=== PATIENT | male | born 1945 | race American Indian/Alaskan Native ===

== ENCOUNTER 2019-03-23 09:51 | Outpatient (CLI) | payer MEDICARE ==
--- NOTE | 2019-03-23 10:52 | Ultrasound Report ---
ULTRASOUND RENAL INDICATION: N18.4)Chronic kidney disease, stage 4 (severe). COMPARISON: No relevant prior imaging study available. FINDINGS: RIGHT KIDNEY: Size: 10.4 cm. Echogenicity: Normal. Cortical thickness: Normal. Stones: None. Hydronephrosis: None. Cyst or mass: There is a 1.3 cm cyst in the lateral cortex. LEFT KIDNEY: Size: 10.8 cm. Echogenicity: Normal. Cortical thickness: Normal. Stones: None. Hydronephrosis: None. Cyst or mass: None. Urinary Bladder: No significant abnormality. Free Fluid: None. Additional Findings: None. IMPRESSION 1. No acute sonographic abnormality of the kidneys. Signer Name: Remi Ashtno MD Signed: 03/23/2019 10:48 AM Workstation Name: [id number]
== END 2019-03-23 09:52 | disposition home or self-care (01) ==
LOC: US 09:51
PROVIDERS: ATTEND Specialist
DX: N18.4 Chronic kidney disease, stage 4 (severe) (principal); N28.1 Cyst of kidney, acquired
CPT/HCPCS: 76770